=== PATIENT | female | born 1985 | race Caucasian/White ===

== ENCOUNTER 2024-03-09 21:00 | Emergency (ER) | payer MEDICARE, OTHER ==
[~2024-03-09] VITALS: Ht 165.1 cm; Wt 70.0 kg
[~2024-03-09 21:00] MED LIST: NAPR-1176 MT
[2024-03-09 21:14] VITALS: TEMP 98.2; O2SAT 100
[2024-03-09] MEDS ORDERED: ACETAMINOPHEN 325MG TABLET PO STA (21:54)
[2024-03-09] MEDS ORDERED: IBUP-2029 MT (22:25)
[2024-03-09] MEDS ORDERED: HYDROCODONE/ACETAMINOPHEN 5/325MG TABLET PO ONE (22:30)
[2024-03-09 22:45] VITALS: BP 118/79; PULSE 66; RESP 17; O2SAT 100
[2024-03-09] MEDS: HYDROCODONE/ACETAMINOPHEN 5/325MG TABLET PO NR (22:45)
[2024-03-09] MEDS: ACETAMINOPHEN 325MG TABLET PO NR (22:45)
== END 2024-03-10 02:12 | disposition home or self-care (01) ==
LOC: ER 21:00
DX: M25.572 Pain in left ankle and joints of left foot (principal)
CPT/HCPCS: 73610; 73630; 29505; 99284; Z7610

== ENCOUNTER 2024-08-04 10:47 | Emergency (ER) | payer MEDICAID, OTHER ==
[~2024-08-04] VITALS: Ht 162.6 cm; Wt 74.0 kg
[~2024-08-04 10:47] MED LIST changes: +IBUP-2029 MT
[2024-08-04 10:57] VITALS: O2SAT 99
[2024-08-04 10:58] VITALS: TEMP 36.7; O2SAT 100
[2024-08-04 17:22] LABS: CLARITY URINE CLEAR (CLEAR); COLOR URINE YELLOW (YELLOW); GLUCOSE URINE NEGATIVE (NEGATIVE); KETONES URINE NEGATIVE (NEGATIVE); LEUKOCYTE ESTERASE URINE NEGATIVE (NEGATIVE); NITRITE URINE POSITIVE (NEGATIVE); OCCULT BLOOD URINE 1+ (NEGATIVE); PH URINE 5.5 (4.5-8.0); PROTEIN URINE NEGATIVE (NEGATIVE); SPECIFIC GRAVITY URINE 1.021 (1.005-1.030); UROBILINOGEN URINE 0.2 E.U./dL (0.2-1.0)
[2024-08-04 17:58] LABS: BASOPHILS % 0.2 % (0.0-2.0); EOSINOPHILS % 0.4 % (0.0-5.0); HEMATOCRIT. 39.8 % (36.0-48.0); HEMOGLOBIN. 13.1 g/dL (12.0-16.0); LYMPHOCYTES % 20.3 % (20.0-50.0); MEAN CORPUSCULAR HEMOGLOBIN 29.6 pg (28.0-32.0); MEAN CORPUSCULAR HGB CONC 32.9 g/dL (31.0-37.0); MONOCYTES % 4.7 % (2.0-8.0); NEUTROPHILS % 74.4 % (40.0-76.0); PLATELET 406 x1000/uL (130-400); RED BLOOD CELL COUNT 4.42 mill/uL (4.2-5.4); RED CELL DISTRIBUTION WIDTH 14.1 % (11.6-14.6); WHITE BLOOD COUNT 15.7 x1000/uL (4.5-11.0)
[2024-08-04 18:11] LABS: ALANINE AMINOTRANSFERASE 14 IU/L (10-49); ALBUMIN 4.7 g/dL (3.2-4.8); ASPARTATE AMINOTRANSFERASE 14 IU/L (<34); BILIRUBIN DIRECT 0.1 mg/dL (<=3.0); BILIRUBIN TOTAL 0.5 mg/dL (0.1-1.0)
[2024-08-04 18:12] LABS: PROTEIN TOTAL 8.2 g/dL (6.0-8.3)
[2024-08-04] MEDS ORDERED: SODIUM CHLORIDE 0.9% (SEPSIS BOLUS) IV ONE (18:15)
[2024-08-04] MEDS ORDERED: VANCOMYCIN 1G PREMIX 200 ML IV NR (18:15)
[2024-08-04 18:29] LABS: HCG SCREEN NEGATIVE
[2024-08-04] MEDS ORDERED: CEFTRIAXONE 1GM/50ML 50 ML IV NR (18:30)
[2024-08-04 18:47] LABS: BACTERIA URINE 4+; SQUAMOUS EPITHELIAL CELL URINE FEW /lpf (RARE/1+); WBC URINE 0-2 /hpf (0-2)
[2024-08-04 19:30] VITALS: BP 157/88; PULSE 100; RESP 20
[2024-08-04] MEDS: KETOROLAC 15MG/ML VIAL IV ONE (19:30)
[2024-08-04 21:20] LABS: CHLORIDE 105 mEq/L (98-107); SODIUM 140 mEq/L (136-145)
[2024-08-04 21:21] LABS: CALCIUM 9.8 mg/dL (8.7-10.4); CARBON DIOXIDE 23 mEq/L (21-32)
[2024-08-04 21:26] LABS: CREATININE 0.7 mg/dL (0.6-1.0); GLUCOSE 80 mg/dL (70-105); UREA NITROGEN BLOOD 11 mg/dL (9-23)
[2024-08-04 23:49] LABS: ALANINE AMINOTRANSFERASE 12 IU/L (10-49); ALBUMIN 4.5 g/dL (3.2-4.8); ASPARTATE AMINOTRANSFERASE 13 IU/L (<34); BILIRUBIN DIRECT 0.2 mg/dL (<=3.0); BILIRUBIN TOTAL 0.6 mg/dL (0.1-1.0); PROTEIN TOTAL 7.8 g/dL (6.0-8.3)
== END 2024-08-05 02:15 | disposition home or self-care (01) ==
LOC: ER 10:58
DX: R10.84 Generalized abdominal pain (principal); N88.2 Stricture and stenosis of cervix uteri; Z79.1 Long term (current) use of non-steroidal anti-inflammatories (NSAID); Z98.890 Other specified postprocedural states
CPT/HCPCS: 99291; 74176; 96374; 76830; 76856; 80048; 81003; 84703; 83605; 83690; 85025; 87040; 71045; 93005; 80076; 36415; J1885; J7030